=== PATIENT | male | born 1980 | race Caucasian/White ===

== ENCOUNTER → 2023-10-28 07:40 | Outpatient (REF) | payer OTHER, SELFPAY | LOC: HWRAD 07:40 | PROVIDERS: ATTENDING PHYSICIAN Family Medicine | DX: J40 Bronchitis, not specified as acute or chronic (principal) | CPT/HCPCS: 71250 ==

== ENCOUNTER → 2024-11-10 14:44 | Outpatient (REF) | payer OTHER, SELFPAY | LOC: HWRAD 14:44 | PROVIDERS: ATTENDING PHYSICIAN Family Medicine | DX: R91.8 Other nonspecific abnormal finding of lung field (principal) | CPT/HCPCS: 71250 ==

== ENCOUNTER 2025-01-20 06:27 | Day surgery (SDC) | payer OTHER, SELFPAY | END 2025-01-20 11:49 | disposition home or self-care (01) | LOC: GI 06:27 | PROVIDERS: ATTENDING PHYSICIAN Internal Medicine Gastroenterology | DX: Z12.11 Encounter for screening for malignant neoplasm of colon (principal); K64.0 First degree hemorrhoids; K63.5 Polyp of colon | CPT/HCPCS: 45380; 88305 ==